=== PATIENT | female | born 1955 | race American Indian/Alaskan Native ===

== ENCOUNTER 2018-09-30 17:59 | Emergency (ER) | payer MEDICARE ==
[2018-09-30 18:45] LABS: Hematocrit 37.2 % (30.3-42.9); Hemoglobin 12.5 gm/dl (10.1-14.3); Mean Corpuscular HGB Conc 34 % (30-34); Mean Corpuscular Volume 99 fl (79-97); Platelet Count 337 K/mm3 (140-440); Red Blood Count 3.77 M/mm3 (3.65-5.03); Red Cell Distribution Width 13.6 % (13.2-15.2)
[2018-09-30 19:05] LABS: BUN/Creatinine Ratio 16; Blood Urea Nitrogen 13 mg/dL (7-17); Calcium 9.3 mg/dL (8.4-10.2); Hemolysis Index 1
[2018-09-30 19:13] LABS: Bacteria,Urine 1+ /HPF (Negative); Bilirubin,Urine NEG (Negative); Blood,Urine NEG (Negative); Color,Urine Amber (Yellow); Mucus,Urine 2+ /HPF
[2018-09-30 19:15] LABS: Amphetamine Screen,Urine PRESUMPTIVE NEGATIVE; Benzodiazepines Screen,Urine PRESUMPTIVE NEGATIVE; Cocaine Screen,Urine PRESUMPTIVE NEGATIVE; Methadone Screen,Urine PRESUMPTIVE NEGATIVE; Opiate Screen,Urine PRESUMPTIVE NEGATIVE
[2018-09-30 19:27] LABS: Cannabinoid Screen,Urine PRESUMPTIVE POSITIVE
--- NOTE | 2018-09-30 20:17 | Emergency Department Report ---
HPI - General Chief Complaint: Psych Time Seen by Provider: 09/30/18 19:56 - HPI HPI: Room 9 The patient is a 62-year-old male presenting with a chief complaint suicidal ideation. She carries a diagnosis of depression and her symptoms worsened over the past 2 weeks. The patient states she's had suicidal ideation for one week. Patient states her plan was to walk [place] traffic [place]. Patient denies any attempts at harming herself. Location: Mental state Duration: [See above] Quality: Suicidal Severity: Severe Modifying factors: [see above] Context: [see above] Mode of transportation: [not driving] ED Past Medical Hx - Past Medical History Previous Medical History?: Yes Hx Psychiatric Treatment: Yes ([employer], depression) - Surgical History Past Surgical History?: No - Family History Family history: no significant - Social History Smoking Status: Former Smoker (none 13 years) Substance Use Type: Alcohol (occasional), Marijuana ED Review of Systems ROS: Stated complaint: MENTAL EVAL Other details as noted in HPI Constitutional: no symptoms reported Eyes: denies: eye pain ENT: denies: throat pain Respiratory: no symptoms reported Cardiovascular: denies: chest pain Endocrine: no symptoms reported Gastrointestinal: denies: abdominal pain Genitourinary: denies: dysuria Musculoskeletal: denies: back pain Neurological: denies: headache Psychiatric: suicidal thoughts Physical Exam - Physical Exam Vital Signs: Vital Signs 09/30/18 09/30/18 18:05 19:43 Temperature 98.1 F Pulse Rate 79 Respiratory 16 16 Rate Blood Pressure 129/84 O2 Sat by Pulse 100 Oximetry Physical Exam: GENERAL: The patient is well-developed well-nourished female lying on stretcher not appearing to be in acute distress. [] HEENT: Normocephalic. Atraumatic. Extraocular motions are intact. Patient has moist mucous membranes. NECK: Supple. Trachea midline CHEST/LUNGS: Clear to auscultation. There is no respiratory distress noted. HEART/CARDIOVASCULAR: Regular. There is no tachycardia. There is no gallop rub or murmur. ABDOMEN: Abdomen is soft, nontender. Patient has normal bowel sounds. There is no abdominal distention. SKIN: There is no rash. There is no edema. There is no diaphoresis. NEURO: The patient is awake, alert, and oriented. The patient is cooperative. The patient has normal speech MUSCULOSKELETAL: There is no evidence of acute injury. ED Course Vital Signs 09/30/18 09/30/18 18:05 19:43 Temperature 98.1 F Pulse Rate 79 Respiratory 16 16 Rate Blood Pressure 129/84 O2 Sat by Pulse 100 Oximetry ED Medical Decision Making - Lab Data Result diagrams: 09/30/18 18:27 09/30/18 18:27 Laboratory Tests 09/30/18 09/30/18 09/30/18 18:27 18:27 18:27 WBC RBC Hgb Hct MCV MCH MCHC RDW Plt Count Lymph # Sodium 144 Potassium 3.7 Chloride 105.6 Carbon Dioxide 28 Anion Gap 14 BUN 13 Creatinine 0.8 Estimated GFR > 60 BUN/Creatinine Ratio 16 Glucose 106 H Calcium 9.3 Urine Color Urine Turbidity Urine pH Ur Specific [place] Urine Protein Urine Glucose (UA) Urine Ketones Urine Blood Urine Nitrite Urine Bilirubin Urine Urobilinogen Ur Leukocyte Esterase Urine WBC (Auto) Urine RBC (Auto) U Epithel Cells (Auto) Urine Bacteria (Auto) Urine Mucus Salicylates < 0.3 L Urine Opiates Screen Urine Methadone Screen Acetaminophen < 5.0 L Ur Barbiturates Screen Ur Phencyclidine Scrn Ur Amphetamines Screen U Benzodiazepines Scrn Urine Cocaine Screen U Marijuana (THC) Screen Drugs of Abuse Note Plasma/Serum Alcohol 09/30/18 09/30/18 09/30/18 18:27 18:27 18:29 WBC 9.0 RBC 3.77 Hgb 12.5 Hct 37.2 MCV 99 H MCH 33 H MCHC 34 RDW 13.6 Plt Count 337 Lymph # [employer] Sodium Potassium Chloride Carbon Dioxide Anion Gap BUN Creatinine Estimated GFR BUN/Creatinine Ratio Glucose Calcium Urine Color Jessy Urine Turbidity Clear Urine pH 6.0 Ur Specific [place] 1.017 Urine Protein 30 mg/dl Urine Glucose (UA) Neg Urine Ketones Tr Urine Blood Neg Urine Nitrite Neg Urine Bilirubin Neg Urine Urobilinogen 2.0 Ur Leukocyte Esterase Neg Urine WBC (Auto) 1.0 Urine RBC (Auto) 5.0 U Epithel Cells (Auto) 4.0 Urine Bacteria (Auto) 1+ Urine Mucus 2+ Salicylates Urine Opiates Screen Urine Methadone Screen Acetaminophen Ur Barbiturates Screen Ur Phencyclidine Scrn Ur Amphetamines Screen U Benzodiazepines Scrn Urine Cocaine Screen U Marijuana (THC) Screen Drugs of Abuse Note Plasma/Serum Alcohol < 0.01 09/30/18 18:29 WBC RBC Hgb Hct MCV MCH MCHC RDW Plt Count Lymph # Sodium Potassium Chloride Carbon Dioxide Anion Gap BUN Creatinine Estimated GFR BUN/Creatinine Ratio Glucose Calcium Urine Color Urine Turbidity Urine pH Ur Specific [place] Urine Protein Urine Glucose (UA) Urine Ketones Urine Blood Urine Nitrite Urine Bilirubin Urine Urobilinogen Ur Leukocyte Esterase Urine WBC (Auto) Urine RBC (Auto) U Epithel Cells (Auto) Urine Bacteria (Auto) Urine Mucus Salicylates Urine Opiates Screen Presumptive negative Urine Methadone Screen Presumptive negative Acetaminophen Ur Barbiturates Screen Presumptive negative Ur Phencyclidine Scrn Presumptive negative Ur Amphetamines Screen Presumptive negative U Benzodiazepines Scrn Presumptive negative Urine Cocaine Screen Presumptive negative U Marijuana (THC) Screen Presumptive positive Drugs of Abuse Note Disclamer Plasma/Serum Alcohol - Differential Diagnosis suicidal ideation, depression Critical care attestation.: If time is entered above; I have spent that time in minutes in the direct care of this critically ill patient, excluding procedure time. ED Disposition Clinical Impression: Suicidal ideation, Depression Disposition: DC/TX-65 PSY HOSP/PSY UNIT Is pt being admited?: No Does the pt Need Aspirin: No Condition: Serious Time of Disposition: 20:19 (awaiting acceptance)
[2018-09-30 21:07] VITALS: BP 126/56
[2018-09-30 21:43] LABS: Anisocytosis 1+; Platelet Estimate Consistent w Auto; Total Cells Counted 100
[2018-09-30] MEDS ORDERED: PAXIL PO SCH (22:00)
== END 2018-10-01 ==
LOC: ED 17:59
DX: F31.9 Bipolar disorder, unspecified (principal); F12.10 Cannabis abuse, uncomplicated; Z87.891 Personal history of nicotine dependence; Z88.8 Allergy status to other drugs, medicaments and biological substances
CPT/HCPCS: 36415; 80048; 80307; 81001; 85007; 85025; 99284; G0480; 80320

== ENCOUNTER 2018-10-01 00:24 | Inpatient (IN) | payer MEDICARE ==
[2018-10-01] MEDS ORDERED: ATIVAN PO PRN ×2 (02:10→03:00)
[2018-10-01] MEDS ORDERED: ATIVAN IM PRN ×2 (02:17→03:00)
[2018-10-01] MEDS: CYMBALTA PO SCH (10:35)
[2018-10-01] MEDS: IBUPROFEN PO PRN (10:35)
[2018-10-01] MEDS: BUSPAR PO SCH ×2 (10:51→22:10)
--- NOTE | 2018-10-01 16:52 | History and Physical Report ---
History of Present Illness Date of admission: 10/01/18 00:32 Chief complaint: I have pains in my shoulders History of present illness: 62-year-old woman with history of polymyositis. She presents with generalized body pains. She states that she was having such bad pain. She is having a hard time getting prednisone from . The pain was so depressing for her that it made her have suicidal ideation. She is in geriatric psychiatric unit for psychiatric medication optimization. She states that the pains are in all her muscles will sleep her arms or legs her shoulders. -The pain is dull, worse with exertion, she is also complaining of generalized weakness Past medical history; polymyositis, major depression, bipolar disorder Past surgical history denies major surgeries Family history diabetes Social history lives at home with her son, she is independent of ADLs Medications and Allergies Allergies Allergy/AdvReac Type Severity Reaction Status Date / Time lamotrigine [From Lamictal] Allergy Unknown Verified 09/30/18 18:07 Home Medications Medication Instructions Recorded Confirmed Last Taken Type PARoxetine [Paxil] 40 mg PO DAILY 09/30/18 09/30/18 Unknown History Quetiapine Fumarate [Seroquel] 800 mg PO QDAY 09/30/18 09/30/18 Unknown History Active Meds: Active Medications Buspirone HCl (Buspar) 15 mg PO BID PENDING SALE TO [facility] Last Admin: 10/01/18 10:51 Dose: 15 mg Documented by: Duloxetine HCl (Cymbalta) 30 mg PO QDAY PENDING SALE TO [facility] Last Admin: 10/01/18 10:35 Dose: 30 mg Documented by: Ibuprofen (Motrin) 600 mg PO Q6H PRN PRN Reason: Pain, Mild (1-3) Last Admin: 10/01/18 10:35 Dose: 600 mg Documented by: Lorazepam (Ativan) 1 mg PO Q6H PRN PRN Reason: Anxiety Lorazepam (Ativan) 1 mg IM Q6H PRN PRN Reason: Anxiety Paroxetine HCl (Paxil) 20 mg PO QDAY PENDING SALE TO [facility] Propranolol HCl (Inderal) 20 mg PO Q12HR PENDING SALE TO [facility] Quetiapine Fumarate (Seroquel) 400 mg PO QHS PENDING SALE TO [facility] Last Admin: 10/01/18 03:10 Dose: 400 mg Documented by: Trazodone HCl (Desyrel) 50 mg PO QHS PENDING SALE TO [facility] Review of Systems All systems: negative Constitutional: fatigue, weakness Ears, nose, mouth and throat: no deferred Breasts: no deferred Cardiovascular: no chest pain Respiratory: no cough Gastrointestinal: no abdominal pain Genitourinary Female: no dyspareunia Menstruation: no currently menstrual Rectal: no pain Musculoskeletal: myalgias, no neck stiffness Integumentary: no deferred Neurological: no head injury Psychiatric: suicidal ideation Endocrine: no cold intolerance Hematologic/Lymphatic: no easy bruising Allergic/Immunologic: no urticaria Exam - Constitutional Vitals: Temp Pulse Resp BP Pulse Ox 98.4 F 91 H 18 126/62 100 10/01/18 10:00 10/01/18 10:00 10/01/18 10:00 10/01/18 10:00 10/01/18 10:00 General appearance: Present: no acute distress, well-nourished - EENT Eyes: Present: PERRL ENT: hearing intact, clear oral mucosa - Neck Neck: Present: supple, normal ROM - Respiratory Respiratory effort: normal Respiratory: bilateral: CTA - Cardiovascular Heart Sounds: Present: S1 & S2. Absent: rub, click - Extremities Extremities: pulses symmetrical, No edema Peripheral Pulses: within normal limits - Abdominal General gastrointestinal: Present: soft, non-tender, non-distended, normal bowel sounds Female genitourinary: Present: normal - Integumentary Integumentary: Present: clear, warm, dry - Musculoskeletal Musculoskeletal: gait normal, strength equal bilaterally - Psychiatric Psychiatric: appropriate mood/affect, intact judgment & insight - Neurologic Neurologic: CNII-XII intact, moves all extremities Assessment and Plan Assessment and plan: 62-year-old woman who presents with polymyositis and suicidal ideation Diagnosis Polymyositis Suicide ideation Major depression Bipolar disorder Plan Have initiated a prednisone taper for 3 weeks, which should be 20 mg 1 week then 10 mg 1 week then 5 mg 1 week then stop -Management of mental illness per psychiatry Thank you for the opportunity to participate in the care of this patient
--- NOTE | 2018-10-01 17:43 | History and Physical Report ---
GP History & Physical - History of Present Illness Date of admission: 09/30/18 Reason for Admission: Danger to self, Extensive Evaluation Required, Failure of Outpatient Treatment, Severe anxiety/depression Legal Status: Voluntary Reaction to Hospitalization: Accepting Substance History - Substance History Drug Use: none (Carlotta Campos is a 64-year-old -[place] female she was referred to the hospital from my outpatient services after patient reported suicidal ideation with a plan to run in front of moving trafficPatient has been under my care for the last several years she apparently has gotten very depressed and suicidal this time she told me that she was suffering from chronic pain but recently the pain was getting out of control she was prescribed ibuprofen by a pain management doctor and she says that it didn't help her and she became increasingly depressed and suicidal inpatient hospitalization and stabilization recommended) Hx Tobacco Use: No Alcohol Use: No Past psychiatric history - Past Medical History Past Medical History: arthritis - past Psychiatric treatment and history Psych: Anxiety, Bipolar, Depression psychiatric treatment history: Patient has been treated to [facility] in the past that was several years ago and Patient is also under my care in my outpatient clinic for the last several years and she has been compliant with the provided treatment Review of Systems Constitutional: poor appetite, chronic pain Psychiatric: anxiety, sleep disturbances, insomnia, suicidal ideation, depression, anhedonia, anxiety attacks, sadness/tearfullness, mood swings Results - Results Labs/Vitals: Last Vital Signs Temp 98.4 F 10/01/18 10:00 Pulse 91 H 10/01/18 10:00 Resp 18 10/01/18 10:00 BP 126/62 10/01/18 10:00 Pulse Ox 100 10/01/18 10:00 Physical Examination - Constitutional Vitals: Vital Signs Temp Pulse Resp BP Pulse Ox 98.4 F 91 H 18 126/62 100 10/01/18 10:00 10/01/18 10:00 10/01/18 10:00 10/01/18 10:00 10/01/18 10:00 Temperature -Last 24 Hours Temperature 98.4 F Temperature 98.9 F Mental Status Exam - Vital signs Last Vital Signs Temp 98.4 F 10/01/18 10:00 Pulse 91 H 10/01/18 10:00 Resp 18 10/01/18 10:00 BP 126/62 10/01/18 10:00 Pulse Ox 100 10/01/18 10:00 - Exam Orientation: time, place, person Affect: depressed, anxious Mood: hopeless, congruent with affect, sad, anxious Thought Process: Intact Perceptions: none Speech: normal rate and pattern Concentration: focused Motor activity: normal, lethargic Level of consciousness: alert Memory: Intact Sleep Symptoms: Difficulty Falling Asleep Appetite: decreased Interaction: guarded Physician Certification - Certification Statement Physician Certification Statement: This is an acknowledgement statement that CARLOTTA CAMPOS is a 62 year old F who requires inpatient psychiatric admission for treatment which could reasonably be expected to improve the patient's condition for Estimated period of time patient will need to remain in the hospital: [ ] Plan for post-hospital care: [ ]
[2018-10-01] MEDS: INDERAL PO SCH ×2 (19:11→22:10)
[2018-10-01] MEDS: PAXIL PO SCH (19:16)
[2018-10-01] MEDS: DELTASONE PO SCH (19:17)
[2018-10-01] MEDS ORDERED: DESYREL PO SCH (22:00)
[2018-10-02 08:08] LABS: Alanine Aminotransferase 13 units/L (7-56); Albumin 3.7 g/dL (3.9-5); BUN/Creatinine Ratio 25; Blood Urea Nitrogen 15 mg/dL (7-17); Calcium 9.2 mg/dL (8.4-10.2); Hemolysis Index 35
[2018-10-02 08:28] LABS: Hematocrit 35.7 % (30.3-42.9); Mean Corpuscular HGB Conc 34 % (30-34); Mean Corpuscular Volume 100 fl (79-97); Platelet Count 291 K/mm3 (140-440); Red Blood Count 3.57 M/mm3 (3.65-5.03); Red Cell Distribution Width 13.4 % (13.2-15.2)
[2018-10-02] MEDS: BUSPAR PO SCH (10:42)
[2018-10-02] MEDS: CYMBALTA PO SCH (10:43)
[2018-10-02] MEDS: INDERAL PO SCH ×2 (10:44→21:55)
[2018-10-02] MEDS: PAXIL PO SCH (10:44)
[2018-10-02] MEDS: DELTASONE PO SCH (10:47)
--- NOTE | 2018-10-02 15:40 | Progress Note ---
Subjective Date of service: 10/02/18 Subjective Comment: This is the daily progress note on patient's name Carlotta Campos. patient seen today and case discussed with staff. Patient was seen in her room today. Patient is still somewhat isolated and dysphoric but her overall mood seems to have improved. Patient admits that she is still struggling with depression and she is to have intermittent suicidal thoughts but she denies any intent or plan. patient denies any auditory or visual hallucination. Mental status examination: patient is alert and oriented 3 concentration is fair memory is grossly intact judgment and insight is fair patient denies any active suicidal intent or plan but she is still have intermittent suicidal thoughts.patient denies any homicidal ideation patient denies any auditory or visual hallucination. Patient has complained of insomnia and she told me that she has difficulty sleeping at night. Plan: plan for the patient is to continue the inpatient hospitalization and stabilization . Also gradually increased the dose of her Cymbalta and will taper off the Paxil patient will also be given a sleeping aid and I will increase the dose of trazodone 100. Mg at night. We will also recommend family session for this patient and we will also check the labs on this patient.
[2018-10-02] MEDS: DESYREL PO SCH (21:58)
[2018-10-02 22:53] LABS: Bacteria,Urine 2+ /HPF (Negative); Bilirubin,Urine NEG (Negative); Blood,Urine NEG (Negative); Color,Urine Yellow (Yellow); Mucus,Urine 2+ /HPF; Protein,Urine <15 mg/dL mg/dL (Negative); Urobilinogen,Urine < 2.0 mg/dL (<2.0); WBC,Urine < 1.0 /HPF (0.0-6.0)
[2018-10-02 23:00] LABS: Amphetamine Screen,Urine PRESUMPTIVE NEGATIVE; Benzodiazepines Screen,Urine PRESUMPTIVE NEGATIVE; Cocaine Screen,Urine PRESUMPTIVE NEGATIVE; Methadone Screen,Urine PRESUMPTIVE NEGATIVE; Opiate Screen,Urine PRESUMPTIVE NEGATIVE
[2018-10-02 23:18] LABS: Cannabinoid Screen,Urine PRESUMPTIVE POSITIVE
[2018-10-03] MEDS: DELTASONE PO SCH (10:45)
[2018-10-03] MEDS: INDERAL PO SCH ×2 (10:46→21:57)
[2018-10-03] MEDS: BUSPAR PO SCH ×2 (10:53→21:59)
[2018-10-03] MEDS: PAXIL PO SCH (10:54)
[2018-10-03] MEDS: CYMBALTA PO SCH (10:57)
[2018-10-03] MEDS: DESYREL PO SCH (21:57)
[2018-10-04] MEDS: BUSPAR PO SCH ×3 (10:45→21:36)
[2018-10-04] MEDS: CYMBALTA PO SCH (10:47)
[2018-10-04] MEDS: INDERAL PO SCH ×2 (10:48→21:36)
[2018-10-04] MEDS: DELTASONE PO SCH (10:48)
[2018-10-04] MEDS: PAXIL PO SCH (10:49)
[2018-10-04] MEDS: DESYREL PO SCH (21:36)
[2018-10-05] MEDS: CYMBALTA PO SCH (10:27)
[2018-10-05] MEDS: BUSPAR PO SCH ×3 (10:27→21:19)
[2018-10-05] MEDS: DELTASONE PO SCH (10:29)
[2018-10-05] MEDS: INDERAL PO SCH ×2 (10:29→21:20)
[2018-10-05] MEDS: PAXIL PO SCH (10:35)
--- NOTE | 2018-10-05 15:40 | Progress Note ---
Subjective Date of service: 10/05/18 Subjective Comment: This is the progress note on patient's name Carlotta Campos. Patient seen today with the nurse. Patient has shown some signs of improvement. she told me that she has been feeling better and she is looking forward to have family session with her children particularly with her son. Patient was initially admitted for severe depression and suicidal thoughts. Patient denies any active suicidal intent or plan but she is still very anxious and I have strongly recommended that she should have a family session before we discussed the discharge plan Patient has been compliant with the treatment and she has continued to show signs of improvement. Mental status examination: patient is alert and oriented 3 concentration is fair and judgment is intact judgment and insight is intact. she has denied any active suicidal intent or plan today .she denied any auditory or visual hallucination and her reality testing is intact. Patient has complained of constipation and she reported to me and the nurse that she has been constipated ever since her admission here which is last 4 days. She said that usually she moves her bowel at least once a day but this time for some unknown reason she has been constipated for 4 days. Interestingly she did not offer any pain or discomfort from her constipation. Patient was reassured and I have discussed the medication adjustment with her. Plan: plan for the patient is to arrange the family session with her son who resides with the patient. patient is ready to have a family session and after the family session we will determine her date of discharge for her from this hospital.
[2018-10-05] MEDS ORDERED: CITRATE OF MAGNESIA PO ONE (15:50)
[2018-10-05] MEDS: IBUPROFEN PO PRN (17:30)
[2018-10-05] MEDS: DESYREL PO SCH (21:19)
[2018-10-06] MEDS: ZOFRAN ODT PO PRN ×2 (00:31→07:38)
[2018-10-06] MEDS: IBUPROFEN PO PRN (05:05)
[2018-10-06 06:59] VITALS: BP 154/75
[2018-10-06] MEDS: CYMBALTA PO SCH (10:10)
[2018-10-06] MEDS: INDERAL PO SCH (10:11)
[2018-10-06] MEDS: DELTASONE PO SCH (10:11)
[2018-10-06] MEDS: BUSPAR PO SCH ×2 (10:19→10:20)
--- NOTE | 2018-10-06 17:16 | Discharge Summary ---
Providers - Providers Date of Admission: 10/01/18 00:32 Date of discharge: 10/06/18 Attending physician: CATIA TRUJILLO MD 10/01/18 07:05 Consult to Physician [CONS] Routine Comment: Consulting Provider: CARISA BEAVERS Physician Instructions: H & P please Reason For Exam: medical management Primary care physician: ADONAY GONZALEZ Hospitalization Reason for admission: depression with suicidal intent and plan Disposition: - TO HOME OR SELFCARE Allergies/Adverse Reactions: Allergies lamotrigine [From Lamictal] Allergy (Verified 09/30/18 18:07) Unknown Vital Signs: Last Vital Signs Temp 98.1 F 10/06/18 06:57 Pulse 88 10/06/18 06:57 Resp 20 10/06/18 06:57 BP 154/75 10/06/18 06:57 Pulse Ox 100 10/06/18 06:57 Last Lab: Laboratory Last Values WBC 7.9 K/mm3 (4.5-11.0) 10/02/18 07:27 RBC 3.57 M/mm3 (3.65-5.03) L 10/02/18 07:27 Hgb 12.0 gm/dl (10.1-14.3) 10/02/18 07:27 Hct 35.7 % (30.3-42.9) 10/02/18 07:27 MCV 100 fl (79-97) H 10/02/18 07:27 MCH 34 pg (28-32) H 10/02/18 07:27 MCHC 34 % (30-34) 10/02/18 07:27 RDW 13.4 % (13.2-15.2) 10/02/18 07:27 Plt Count 291 K/mm3 (140-440) 10/02/18 07:27 Sodium 141 mmol/L (137-145) 10/02/18 07:27 Potassium 4.2 mmol/L (3.6-5.0) 10/02/18 07:27 Chloride 108.2 mmol/L (98-107) H 10/02/18 07:27 Carbon Dioxide 23 mmol/L (22-30) 10/02/18 07:27 Anion Gap 14 mmol/L 10/02/18 07:27 BUN 15 mg/dL (7-17) 10/02/18 07:27 Creatinine 0.6 mg/dL (0.7-1.2) L 10/02/18 07:27 Estimated GFR > 60 ml/min 10/02/18 07:27 BUN/Creatinine Ratio 25 % 10/02/18 07:27 Glucose 100 mg/dL (65-100) 10/02/18 07:27 Calcium 9.2 mg/dL (8.4-10.2) 10/02/18 07:27 Total Bilirubin 0.50 mg/dL (0.1-1.2) 10/02/18 07:27 AST 16 units/L (5-40) 10/02/18 07:27 ALT 13 units/L (7-56) 10/02/18 07:27 Alkaline Phosphatase 90 units/L (35-129) 10/02/18 07:27 Total Protein 6.9 g/dL (6.3-8.2) 10/02/18 07:27 Albumin 3.7 g/dL (3.9-5) L 10/02/18 07:27 Albumin/Globulin Ratio 1.2 % 10/02/18 07:27 TSH 1.010 mlU/mL (0.270-4.200) 10/01/18 21:43 Urine Color Yellow (Yellow) 10/01/18 06:00 Urine Turbidity Clear (Clear) 10/01/18 06:00 Urine pH 6.0 (5.0-7.0) 10/01/18 06:00 Ur Specific [place] 1.024 (1.003-1.030) 10/01/18 06:00 Urine Protein <15 mg/dl mg/dL (Negative) 10/01/18 06:00 Urine Glucose (UA) Neg mg/dL (Negative) 10/01/18 06:00 Urine Ketones Neg mg/dL (Negative) 10/01/18 06:00 Urine Blood Neg (Negative) 10/01/18 06:00 Urine Nitrite Neg (Negative) 10/01/18 06:00 Urine Bilirubin Neg (Negative) 10/01/18 06:00 Urine Urobilinogen < 2.0 mg/dL (<2.0) 10/01/18 06:00 Ur Leukocyte Esterase Neg (Negative) 10/01/18 06:00 Urine WBC (Auto) < 1.0 /HPF (0.0-6.0) 10/01/18 06:00 Urine RBC (Auto) 2.0 /HPF (0.0-6.0) 10/01/18 06:00 U Epithel Cells (Auto) 8.0 /HPF (0-13.0) 10/01/18 06:00 Urine Bacteria (Auto) 2+ /HPF (Negative) 10/01/18 06:00 Urine Mucus 2+ /HPF 10/01/18 06:00 Urine Opiates Screen Presumptive negative 10/02/18 06:00 Urine Methadone Screen Presumptive negative 10/02/18 06:00 Ur Barbiturates Screen Presumptive negative 10/02/18 06:00 Ur Phencyclidine Scrn Presumptive negative 10/02/18 06:00 Ur Amphetamines Screen Presumptive negative 10/02/18 06:00 U Benzodiazepines Scrn Presumptive negative 10/02/18 06:00 Urine Cocaine Screen Presumptive negative 10/02/18 06:00 U Marijuana (THC) Screen Presumptive positive 10/02/18 06:00 Drugs of Abuse Note Disclamer 10/02/18 06:00 Core Measure Documentation - Palliative Care Palliative Care/ Comfort Measures: Not Applicable - Core Measures Any of the following diagnoses?: none Exam - Constitutional Vitals: Temp Pulse Resp BP Pulse Ox 98.1 F 88 20 154/75 100 10/06/18 06:57 10/06/18 06:57 10/06/18 06:57 10/06/18 06:57 10/06/18 06:57 General appearance: Present: no acute distress Plan Diet: regular Follow up with: ADONAY GONZALEZ MD [Primary Care Provider] - 7 Days Pending Studies This is and this is the discharge summary of patient's name Carlotta Campos .the date of admission was 10/01/2018 the date of discharge is 10/06/2018 admitting diagnosis bipolar affective disorder most recent episode depressed Patient seen today and case discussed with the staff. Patient is alert and oriented 3. Patient feels "ready "close for discharge patient denies any destructive thoughts. Patient denies any suicidal or homicidal ideations anymore. Mental history examination patient is alert oriented and street concentration is fair memory is intact judgment and insight is fair she denies any auditory or visual hallucinations denies any more suicidal ideations denies any destructive thoughts patient has tolerated the medications could very well and she denies any side effects on the medications Plan plan for the patient is to discharge home today. The family session with her son is already done and he has verified for safety in the house Patient will be discharged today and I will offer her a month of prescriptions to take home with her follow-up patient will have a follow-up with Dr. sean goins at [address] [place] [address]. [id number] [place] [address] telephone #[phone]
[2018-10-08] MEDS ORDERED: DELTASONE PO SCH (10:00)
[2018-10-15] MEDS ORDERED: DELTASONE PO SCH (10:00)
== END 2018-10-06 18:30 | disposition home or self-care (01) | DRG 885 ==
LOC: UNDOADMIN 00:24 → 5A 00:24
PROVIDERS: ADMIT Specialist; ATTEND Specialist
DX: F33.2 Major depressive disorder, recurrent severe without psychotic features (principal); M33.20 Polymyositis, organ involvement unspecified; G89.29 Other chronic pain; F41.9 Anxiety disorder, unspecified
CPT/HCPCS: 36415; 80048; 80053; 80307; 80320; 81001; 84443; 85007; 85025; 85027; G0378; G0480; J7512; Q0162